=== PATIENT | male | born 1990 | race Caucasian/White ===

== ENCOUNTER 2023-09-03 05:32 | Emergency (ER) | payer OTHER, SELFPAY ==
[2023-09-03 05:35] VITALS: BP 159/110
[2023-09-03 06:00] VITALS: BP 142/95
[2023-09-03 06:06] LABS: % Basophils 0.4 % (0-2); % Eosinophils 0.1 % (0-6); % Immature Granulocytes 0.8 % (0-0.5); % Lymphocytes 8.8 % (20.5-51.1); % Monocytes 15.5 % (1.7-9.3); % Neutrophils 74.4 % (42.2-75.2); Absolute Immature Granulocytes 0.1 10^3/uL (0-0.05); Absolute Lymphocytes 0.8 10^3/uL (1.2-3.4); Absolute Monocytes 1.4 10^3/uL (0.1-0.6); Absolute Neutrophils 6.7 10^3/uL (1.4-6.5); Hemoglobin 17.5 g/dL (13.0-18.0); Mean Corp Hgb Conc. 36.5 g/dL (33.0-37.0); Mean Corpuscular Hgb 31.6 pg (27.0-31.0); Mean Corpuscular Volume 86.6 fL (80.0-94.0); Mean Platelet Volume 9.5 fL (7.4-10.4); Nucleated Red Blood Cells % 0 % (-); Platelet Count 319 10^3/uL (130-400); Red Blood Cell Count 5.54 10^6/uL (4.70-6.10); Red Cell Dist. Width 11.5 % (11.5-14.5)
[2023-09-03 06:09] VITALS: BMI 22.2
[2023-09-03 06:17] LABS: ALT (SGPT) 40 U/L (0-50); AST (SGOT) 49 U/L (17-59); Albumin 5.3 g/dl (3.5-5.0); Alkaline Phosphatase 100 U/L (38-126); Blood Urea Nitrogen 16 mg/dl (9-20); Calcium 10.2 mg/dl (8.4-10.2); Carbon Dioxide 18 mmol/L (22-30); Chloride 105 mmol/L (98-107); Estimated Creatinine Clearance 76 ml/min; Glucose 127 mg/dl (70-99); Lipase 97 U/L (23-300); Potassium 4.4 mmol/L (3.5-5.1); Sodium 135 mmol/L (135-145); Total Bilirubin 1.2 mg/dl (0.2-1.3); Total Protein 8.6 g/dl (6.3-8.2); eGFR > 60.00
[2023-09-03] MEDS: NSS 1000 IV ×2 (06:17→08:50)
[2023-09-03 06:30] VITALS: BP 142/97
--- NOTE | 2023-09-03 06:48 | ED.GENMED ---
History of Present Illness
General
Chief Complaint: Flank Pain
Source: patient
Time Seen by Provider: 09/03/23 06:29
Travel History
Have you had any contact with someone who has COVID-19?: No
Do you have any symptoms of coronavirus? Fever > 100 degrees, chills, cough, shortness of breath, sore throat, loss of taste or smell, muscle aches, or headache?: No
History of Present Illness
History of Present Illness:
32-year-old male presents to the emergency room complaining of nausea, vomiting over the past couple days. Over the past day or so has had right flank pain. He believes the pain started while retching. Nothing seems to make it better. Seems to
be worse in certain positions. No fever. Patient has not been taking any cwce-tpc-zneohah medication.
Past History
Past History
ED Past Medical History: GERD, Psychiatric (Anxiety/depression, Hernia) and Other (IBS, Colitis, )
ED Past Surgical History: None
Social History
Tobacco: Smoker
Alcohol: None
Drug: Marijuana
Personal:
Living: with family
Employment: Employed
Phy Exam
Physical Exam
Physical Exam:
General: Awake, Alert, Oriented X3. No acute distress.
Vitals: unremarkable
Head: Atraumatic
Eyes: Pupils equal, EOMI
Throat: Airway intact, no exudates, dry mucosa
Neck: Trachea midline
Lungs: Clear and equal b/l
Heart: Regular rate, no murmurs
Abd: Soft, Nontender, No pulsatile mass
Back: Mild right flank
Neuro: Nonfocal
Skin: Warm, dry, no rash
Extremities: pulses equal b/l, no edema
Course
Orders/Labs/Results
Orders:
Orders
09/03/23 05:58
CMP [Comprehensive Metabolic Panel] Urgent
Complete Blood Count/With Diff Urgent
Lipase Urgent
09/03/23 06:16
0.9% Sodium Chloride 500 ml [Nss] 1,000 ml IV ONCE
09/03/23 06:45
Ondansetron Injectable [Zofran] 4 mg IV NOW STA
09/03/23 06:46
Ketorolac [Toradol] 15 mg IV NOW STA
09/03/23 06:47
CT Abd/pel Without Iv Or Oral Urgent
Comment:
Reason For Exam: r flank pain
09/03/23 08:43
0.9% Sodium Chloride 1000 ml [Nss] 1,000 ml IV BOLUS
09/03/23 08:48
Urinalysis Reflex To Culture Urgent
Date Specimen was Collected: 09/03/23
Time Specimen was Collected: 08:45
Urine Microscopic Reflex Cult Urgent
Abnormal Lab Results
09/03/23 09/03/23
05:58 08:48
MCH 31.6 H pg
(27.0-31.0)
Abs Immat Gran (auto) 0.1 H 10^3/uL
(0-0.05)
Absolute Neuts (auto) 6.7 H 10^3/uL
(1.4-6.5)
Absolute Lymphs (auto) 0.8 L 10^3/uL
(1.2-3.4)
Absolute Monos (auto) 1.4 H 10^3/uL
(0.1-0.6)
Immature Gran % 0.8 H %
(0-0.5)
Lymphocytes % 8.8 L %
(20.5-51.1)
Monocytes % 15.5 H %
(1.7-9.3)
Carbon Dioxide 18 L mmol/L
(22-30)
Creatinine 1.4 H mg/dL
(0.7-1.3)
Glucose 127 H mg/dl
(70-99)
Total Protein 8.6 H g/dl
(6.3-8.2)
Albumin 5.3 H g/dl
(3.5-5.0)
Urine Ketones Trace A
(Negative)
Urine Bilirubin 1+ A
(Negative)
Leukocyte Esterase Rfl Trace A
(Negative)
Urine Bacteria (Reflex) Few A
(Negative)
Urine Albumin (Reflex) 1+ A
(Neg - Trace)
09/03/23 05:58
09/03/23 05:58
Vital Signs
Initial and Last Documented VS:
Initial Vital Signs
Pulse Resp BP Pulse Ox
88 28 159/110 100
09/03/23 05:35 09/03/23 05:35 09/03/23 05:35 09/03/23 05:35
Last Documented Vital Signs
Pulse Resp BP Pulse Ox
79 16 139/77 97
09/03/23 10:07 09/03/23 10:07 09/03/23 10:07 09/03/23 10:07
MDM/Problems Addressed
Differential Diagnosis Includes:
Kidney stone, gastritis, enteritis
MDM/Problems Addressed:
Patient presents with nausea vomiting for the past couple days. He appears dehydrated clinically lab standpoint does have an elevated creatinine. CT without contrast shows no kidney stone. There are changes consistent with enteritis. Urinalysis
not consistent with urinary tract infection. He does have some casts likely from dehydration
*Radiology
Radiology exam reviewed: radiology read reviewed
*Critical Care Note
Total Time (30-74mins, 75-104mins- exclusive of procedures): Not Applicable
ED Attending Note
-
Portions of this chart may have been created with voice recognition software.� Occasional wrong word or��sound alike� substitutions may have occurred due to the inherent limitations of voice recognition software.
Discharge Plan
Departure
Patient Disposition: Home (Routine Discharge)
Date of Disposition: 09/03/23
Time of Disposition: 10:36
Patient with high blood pressure during this ER visit?: Yes
Condition: Good
Discharge Problem:
Nausea & vomiting, Acute dehydration
Instructions: Nausea and Vomiting, Adult (DC), Abdominal Pain, BLOOD PRESSURE
Prescriptions:
New
ondansetron 4 mg tablet,disintegrating
4 mg PO TID PRN (Reason: nausea and vomiting) Qty: 14 0RF
No Action
omeprazole 40 mg Capsule,Delayed Release(Dr/Ec)
40 mg PO DAILY
amitriptyline 10 mg Tablet
10 mg PO HS
ondansetron 4 mg tablet,disintegrating
4 mg PO Q8H PRN (Reason: nausea and vomiting) Qty: 7 0RF
Referrals:
UNKNOWN - PT DOES,NOT KNOW [Family Provider] -
Interventions
Interventions:
*Risk Screen - Suicide Last Done: 09/03/23 05:35
*General Assessment Last Done: 09/03/23 11:23
*Neglect/Abuse Screening Last Done: 09/03/23 05:35
ED- Fall Risk Assessment Last Done: 09/03/23 11:28
*ED COVID-19 Vaccine History Last Done: 09/03/23 06:09
*Nursing Disposition Last Done: 09/03/23 11:23
LI-Naqzto-Cwfgjwseji Assessment Last Done: 09/03/23 06:14
ED-Male Genitourinary Assessment Last Done: 09/03/23 06:14
ED-Musculoskeletal Assessment Last Done: 09/03/23 06:14
Discharge Date and Time
Discharge Date/Time: 09/03/23 11:28
[2023-09-03 07:00] VITALS: BP 144/89
[2023-09-03] MEDS: TORADOL 15 MG IV (07:08)
[2023-09-03] MEDS: ZOFRAN 4 MG IV (07:08)
[2023-09-03 08:59] LABS: Urine Albumin 1+ (Neg - Trace); Urine Bilirubin 1+ (Negative); Urine Character Clear (Clear); Urine Color Yellow; Urine Glucose Negative (Negative); Urine Ketone Trace (Negative); Urine Leukocyte Trace (Negative); Urine Nitrite Negative (Negative); Urine Occult Blood Negative (Negative); Urine Urobilinogen Negative (Neg - 1+)
[2023-09-03 09:25] LABS: Urine Amorphous Seen; Urine Mucus Many
[2023-09-03 09:27] LABS: Urine Red Blood Cell 0-2 /HPF (0-2)
[2023-09-03 09:28] LABS: Urine Bacteria Few (Negative)
[2023-09-03 10:07] VITALS: BP 139/77
== END 2023-09-03 11:28 | disposition home or self-care (01) ==
LOC: EMR 05:32
PROVIDERS: EMERGENCY PHYSICIAN Emergency Medicine
DX: R10.9 Unspecified abdominal pain (principal); R11.2 Nausea with vomiting, unspecified; K21.9 Gastro-esophageal reflux disease without esophagitis; F32.A Depression, unspecified; K58.9 Irritable bowel syndrome, unspecified; E86.0 Dehydration; F17.200 Nicotine dependence, unspecified, uncomplicated; Z91.148 Patient's other noncompliance with medication regimen for other reason
CPT/HCPCS: 99284; 96374; 96375; 96361; 74176; 80053; 81003; 81015; 83690; 85025

== ENCOUNTER 2024-09-27 11:22 | Emergency (ER) | payer OTHER, SELFPAY ==
[2024-09-27 11:25] VITALS: BP 152/95
--- NOTE | 2024-09-27 11:38 | ED.GENMED ---
History of Present Illness
General
Chief Complaint: Abdominal Pain
Time Seen by Provider: 09/27/24 11:29
History of Present Illness
History of Present Illness:
33-year-old male without significant past medical history presenting to the emergency department for nausea, vomiting, diarrhea. Patient reports symptoms started yesterday. Reports he has been unable to tolerate p.o. Also notes diffuse abdominal
cramping. Reports that his has the same symptoms, was seen in the hospital yesterday. Denies eating any unusual food. Denies blood in the vomit. Denies chest pain difficulty breathing. Denies fever. Denies any history of abdominal
surgeries. Denies additional acute medical complaints
Past History
Past History
ED Past Medical History: GERD, Psychiatric (Anxiety/depression, Hernia) and Other (IBS, Colitis, )
ED Past Surgical History: None
Social History
Tobacco: Smoker
Alcohol: None
Drug: Marijuana
Personal:
Living: with family
Employment: Employed
Phy Exam
Physical Exam
Physical Exam:
General: Well-appearing, no clinical signs of dehydration, nontoxic and in no acute distress
HEENT: protecting airway
Neck: appears supple
CV: Normal heart rate, regular rhythm
Resp: No accessory muscle use, no increased work of breathing, lungs clear to auscultation bilaterally
Abd: Soft and non-distended, generalized nonfocal tenderness, no rebound or guarding. Active retching
Extremities: No deformities, no swelling
Neuro: alert, no focal neurologic deficit
: deferred
Rectal: deferred
Psych: Normal affect
Skin: Intact
Course
Orders/Labs/Results
Orders:
Orders
09/27/24 11:36
Urinalysis Reflex To Culture Urgent
0.9% Sodium Chloride 1000 ml [Nss] 1,000 ml IV BOLUS
Ketorolac [Toradol] 15 mg IV NOW STA
Ondansetron Injectable [Zofran] 4 mg IV NOW STA
Pantoprazole [Protonix IV] 40 mg IV NOW STA
09/27/24 11:40
Complete Blood Count/With Diff Urgent
Comprehensive Metabolic Panel Urgent
Lipase Urgent
09/27/24 12:43
CT Abd/pelvis W Iv Cont Urgent
Comment:
Reason For Exam: general pain, N/V
09/27/24 12:47
0.9% Sodium Chloride 1000 ml [Nss] 1,000 ml IV BOLUS
Abnormal Lab Results
09/27/24
11:40
WBC 16.7 H 10^3/uL
(4.8-10.8)
Hgb 18.3 H g/dL
(13.0-18.0)
MCH 32.2 H pg
(27.0-31.0)
Abs Immat Gran (auto) 0.1 H 10^3/uL
(0-0.05)
Absolute Neuts (auto) 14.7 H 10^3/uL
(1.4-6.5)
Absolute Lymphs (auto) 0.7 L 10^3/uL
(1.2-3.4)
Absolute Monos (auto) 1.1 H 10^3/uL
(0.1-0.6)
Neutrophils % 88.1 H %
(42.2-75.2)
Lymphocytes % 4.1 L %
(20.5-51.1)
Carbon Dioxide 21 L mmol/L
(22-30)
Glucose 116 H mg/dl
(70-99)
Calcium 10.4 H mg/dl
(8.4-10.2)
Total Bilirubin 2.7 H mg/dl
(0.2-1.3)
Albumin 5.1 H g/dl
(3.5-5.0)
09/27/24 11:40
09/27/24 11:40
Vital Signs
Initial and Last Documented VS:
Initial Vital Signs
Pulse Resp BP Pulse Ox
80 18 152/95 98
09/27/24 11:25 09/27/24 11:25 09/27/24 11:25 09/27/24 11:25
Last Documented Vital Signs
Temp Pulse Resp BP Pulse Ox
97.9 F 78 16 148/89 98
09/27/24 11:39 09/27/24 14:12 09/27/24 14:12 09/27/24 14:12 09/27/24 14:12
MDM/Problems Addressed
MDM/Problems Addressed:
33-year-old male presenting to the ER for nausea, vomiting, diarrhea. Vital signs are significant for mild hypertension.
On exam patient is in no acute distress, however is actively retching. Symptoms overall appear most consistent with a viral gastroenteritis. Particularly, in the setting of a known sick contact with at home with same symptoms. Patient
afebrile, nontoxic with overall benign abdominal examination. No focal area of tenderness. Patient noting tenderness most prominently in the epigastric region. Suspected gastritis component. Notes history of peptic ulcers in the past. Will
start patient on IV fluids and treat therapeutically with Zofran, pantoprazole, Toradol. Will obtain laboratory analysis including lipase. No current indication for advanced imaging.
12:40 -patient with leukocytosis and elevated T. bili. For this reason we will proceed with imaging
14:50 - CT without significant acute process, shows mild enteritis. No additional emesis since arrival. Patient reporting symptom improvement. Feel stable for discharge with continued outpatient supportive therapy. Advised continued oral
hydration, bland diet. Return precautions discussed. Results provided to patient
*Critical Care Note
Total Time (30-74mins, 75-104mins- exclusive of procedures): Not Applicable
ED Attending Note
-
Portions of this chart may have been created with voice recognition software.� Occasional wrong word or��sound alike� substitutions may have occurred due to the inherent limitations of voice recognition software.
Discharge Plan
Departure
Patient Disposition: Home (Routine Discharge)
Date of Disposition: 09/27/24
Time of Disposition: 14:57
Patient with high blood pressure during this ER visit?: No
Condition: Good
Discharge Problem:
Viral gastroenteritis
Instructions: Viral gastroenteritis in adults, Clear Liquid Diet, Nausea and Vomiting, Adult (DC)
Prescriptions:
New
ondansetron 4 mg Tablet,Disintegrating
4 mg PO TIDPRN PRN (Reason: nausea/vomiting) Qty: 6 0RF
No Action
omeprazole 40 mg Capsule,Delayed Release(Dr/Ec)
40 mg PO DAILY
amitriptyline 10 mg Tablet
10 mg PO HS
ondansetron 4 mg tablet,disintegrating
4 mg PO Q8H PRN (Reason: nausea and vomiting) Qty: 7 0RF
ondansetron 4 mg tablet,disintegrating
4 mg PO TID PRN (Reason: nausea and vomiting) Qty: 14 0RF
Referrals:
UNKNOWN - PT DOES,NOT KNOW [Family Provider] -
Activity Restrictions/Additional Instructions:
You were seen in the emergency department for nausea and vomiting
You were found to have gastroenteritis which is a viral infection that causes inflammation to your gastrointestinal tract. Please continue to stay hydrated with fluids as tolerated
Please follow-up closely with your primary care physician.
Return to the emergency department for any worsening of your symptoms, or any development of chest pain, difficulty breathing, abdominal pain with persistent vomiting and inability to tolerate food or liquid by mouth (concern for dehydration),
weakness, headache or confusion, fever greater than 100.4, or any additional symptoms that are concerning to you.
Thank you for choosing [facility].
Interventions
Interventions:
*Risk Screen - Suicide Last Done: 09/27/24 11:25
*General Assessment Last Done: 09/27/24 11:25
*Neglect/Abuse Screening Last Done: 09/27/24 11:25
*ED- Fall Risk Assessment Last Done: 09/27/24 11:46
*ED COVID-19 Vaccine History Last Done: 09/27/24 11:46
TX-Gpwwpn-Uthwlueggh Assessment Last Done: 09/27/24 11:46
Discharge Date and Time
Print Language: [place]
[2024-09-27] MEDS: ZOFRAN 4 MG IV (11:42)
[2024-09-27] MEDS: PROTONIX IV 40 MG IV (11:42)
[2024-09-27] MEDS: NSS 1000 IV ×2 (11:42→12:51)
[2024-09-27] MEDS: TORADOL 15 MG IV (11:42)
[2024-09-27 11:46] VITALS: BMI 21.1
[2024-09-27 11:56] LABS: % Basophils 0.4 % (0-2); % Eosinophils 0.4 % (0-6); % Immature Granulocytes 0.5 % (0-0.5); % Lymphocytes 4.1 % (20.5-51.1); % Monocytes 6.5 % (1.7-9.3); % Neutrophils 88.1 % (42.2-75.2); ALT (SGPT) 27 U/L (0-50); AST (SGOT) 31 U/L (17-59); Absolute Basophils 0.1 10^3/uL (0-0.2); Absolute Eosinophils 0.1 10^3/uL (0-0.7); Absolute Immature Granulocytes 0.1 10^3/uL (0-0.05); Absolute Lymphocytes 0.7 10^3/uL (1.2-3.4); Absolute Monocytes 1.1 10^3/uL (0.1-0.6); Absolute Neutrophils 14.7 10^3/uL (1.4-6.5); Albumin 5.1 g/dl (3.5-5.0); Alkaline Phosphatase 95 U/L (38-126); Blood Urea Nitrogen 16 mg/dl (9-20); Calcium 10.4 mg/dl (8.4-10.2); Carbon Dioxide 21 mmol/L (22-30); Chloride 106 mmol/L (98-107); Estimated Creatinine Clearance 91 ml/min; Glucose 116 mg/dl (70-99); Hematocrit 50.9 % (39.0-52.0); Hemoglobin 18.3 g/dL (13.0-18.0); Lipase 85 U/L (23-300); Mean Corpuscular Hgb 32.2 pg (27.0-31.0); Mean Corpuscular Volume 89.5 fL (80.0-94.0); Mean Platelet Volume 9.4 fL (7.4-10.4); Nucleated Red Blood Cells % 0 % (-); Platelet Count 297 10^3/uL (130-400); Potassium 4.5 mmol/L (3.5-5.1); Red Blood Cell Count 5.69 10^6/uL (4.70-6.10); Sodium 138 mmol/L (135-145); Total Bilirubin 2.7 mg/dl (0.2-1.3); Total Protein 7.9 g/dl (6.3-8.2); White Blood Cell Count 16.7 10^3/uL (4.8-10.8); eGFR > 60.00
[2024-09-27 14:12] VITALS: BP 148/89
== END 2024-09-27 15:06 | disposition home or self-care (01) ==
LOC: EMR 11:22
PROVIDERS: EMERGENCY PHYSICIAN Student in an Organized Health Care Education/Training Program
DX: A08.39 Other viral enteritis (principal); F41.9 Anxiety disorder, unspecified; F32.A Depression, unspecified; K21.9 Gastro-esophageal reflux disease without esophagitis; K58.9 Irritable bowel syndrome, unspecified; F17.200 Nicotine dependence, unspecified, uncomplicated; Z87.11 Personal history of peptic ulcer disease; Z88.8 Allergy status to other drugs, medicaments and biological substances
CPT/HCPCS: 99284; 96375 ×2; 96361 ×2; 96374; 74177; 80053; 83690; 85025; Q9967